=== PATIENT | female | born 1995 | race Caucasian/White ===

== ENCOUNTER 2016-11-28 12:48 | Emergency (ER) | payer BC, OTHER ==
[~2016-11-28] VITALS: Ht 182.9 cm; Wt 62.6 kg
[~2016-11-28 12:48] MED LIST: CIPR-255 PO
[2016-11-28 13:00] VITALS: TEMP 36.6; Ht 182.9 cm; Wt 62.6 kg
[2016-11-28] MEDS ORDERED: SODIUM CHLORIDE 0.9% 1000ML 1,000 ML IV STA (13:12)
[2016-11-28] MEDS ORDERED: ONDANSETRON INJ 2 MG/ML 2 ML VIAL IV STA (13:12)
[2016-11-28] MEDS ORDERED: KETOROLAC TROMETHAMINE 30 MG/ML VIAL IV STA (13:12)
[2016-11-28 13:31] LABS: BASO % 0.2 %; BASO ABS # 0.03 K/uL (0-0.2); COMPLETE YES; EOS % 1.3 %; IG% 0.2 %; LYMPH % 15.6 %; LYMPH ABS # 1.89 K/uL (1.2-3.4); MEAN CELL VOLUME 89.6 fL (80-100); MEAN CORPUSCULAR HEMOGLOBIN 31.7 pg (25-34); MEAN CORPUSCULAR HGB CONC 35.4 g/dl (32-36); MEAN PLATELET VOLUME 10.6 fL (7.4-10.4); MONO % 8.9 %; NEUT % 73.8 %; PLATELET COUNT 328 K/uL (130-400); RED BLOOD COUNT 5.36 M/uL (4.2-5.4); WHITE BLOOD COUNT 12.12 K/uL (4.8-10.8)
[2016-11-28 14:00] LABS: BUN/CREATININE RATIO 11.3 (10-20); CALCIUM 10.1 mg/dl (8.5-10.1); POTASSIUM 3.4 mmol/L (3.5-5.1)
[2016-11-28] MEDS ORDERED: CIPROFLOXACIN 400MG / 200ML D5W IV STA (14:10)
[2016-11-28 14:16] LABS: URINE APPEARANCE CLEAR (CLEAR); URINE BILIRUBIN NEG (NEG); URINE COLOR YELLOW; URINE EPITHELIAL CELL AUTO >30 /lpf (0-5); URINE NITRITE NEG (NEG); URINE SPECIFIC GRAVITY 1.007 (1.000-1.030); UROBILINOGEN NEG (NEG); ZZUR CULT IF INDIC CLEAN CATCH YES
[2016-11-28 14:21] LABS: MANUAL MICROSCOPIC REQUIRED? NO; REVIEW REQ? NO
[2016-11-28] MEDS ORDERED: MoRPHine SULFATE 4 MG/ML 1 ML CARP\\VIAL IV STA ×2 (14:25→15:28)
[2016-11-28] MEDS ORDERED: ONDA4TAB10 SL (14:37)
[2016-11-28] MEDS ORDERED: CIPR-255 PO (14:37)
[2016-11-28] MEDS ORDERED: OXYC1TAB3 PO (14:37)
[2016-11-28 15:00] VITALS: BP 100/56; PULSE 74; O2SAT 98
--- NOTE | 2016-11-28 15:30 | EMERGENCY ROOM VISIT NOTE ---
History First contact with patient: 13:12 Chief Complaint: VOMITING Stated Complaint: SICK, STOMACH PAIN Nursing Triage Summary: Triage note: pt reports nausea and vomitting since approx 1400 yesterday. pt also reports "i got my period and i have a lot of abd cramping." History of Present Illness The patient is a 21 year old female who presents to the Emergency Room with complaints of predominantly nausea, vomiting and abdominal cramping that started yesterday afternoon. The patient reports that she is due for menstruation, but reports that she has never had symptoms like this. She reports that she did have urinary discomfort and frequency last week. She took an amoxicillin that her mother gave her from a previous surgery. The patient denies any persistent urinary symptoms. She otherwise denies any prior history of abdominal surgery. She denies eating any unusual foods, has had no recent sick contacts, and has had no recent foreign travel. She denies any diarrhea. She rates her discomfort an 8 out of 10, mostly from her nausea and vomiting. Review of Systems HEENT: Denies dizziness, visual problems, hearing loss, tinnitus. Denies difficulty swallowing, sore throat or oral lesions. PULMONARY: Denies cough, shortness of breath, sputum production or hemoptysis. CARDIOVASCULAR: Denies chest pain, palpitations, dyspnea on exertion, orthopnea or peripheral edema. GASTROINTESTINAL: Denies diarrhea or constipation, otherwise see history of present illness. GENITOURINARY: See history of present illness for recent dysuria and frequency. NEUROLOGIC: Denies history of epilepsy, CVA, TIA or chronic headaches. MUSCULOSKELETAL: Denies history of joint tenderness/swelling. SKIN: Denies rashes or lesions. PSYCHIATRIC: Denies history of depression or mental illness. ENDOCRINE: Denies history of diabetes or thyroid disorders. Past Medical/Surgical History Medical Problems: (1) Heart murmur Surgical Problems: (1) No history of previous surgery Family History Diabetes mellitus FHx: cancer FHx: heart disease Hypertension Social History Smoking Status: Current Every Day Smoker Alcohol Use: occasionally Drug Use: none Marital Status: single, in relationship Housing Status: lives with significant other Occupation Status: unemployed Current/Historical Medications Scheduled Ciprofloxacin Hcl (Cipro), 500 MG PO BID Ondasetron Odt (Zofran Odt), 4 MG SL Q6H Scheduled PRN Oxycodone Ir (Roxicodone Ir), 1-2 TAB PO Q4H PRN for Pain Allergies Coded Allergies: No Known Allergies (Unverified , 11/28/16) Physical Exam Vital Signs Date Time Temp Pulse Resp B/P Pulse Ox O2 Delivery O2 Flow Rate FiO2 11/28/16 15:00 74 18 100/56 98 11/28/16 13:00 36.6 109 18 122/82 93 Room Air Physical Exam CONSTITUTIONAL: Healthy and well nourished. Alert and oriented X 3 with positive affect. Patient appears in moderate discomfort with nausea. HEENT: Normocephalic, atraumatic. Pupils equal, round and reactive. Ears and nares are clear. No scleral icterus or conjunctival injection/pallor. OROPHARYNX: Mucous membranes are dry. No posterior pharyngeal erythema or tonsillar hypertrophy. NECK: Full active range of motion without discomfort. No JVD or carotid bruits. RESPIRATORY: Clear to auscultation bilaterally with no wheezing, crackles, rhonchi or stridor. CARDIOVASCULAR: Regular rate and rhythm with no murmurs, rubs or gallops. GASTROINTESTINAL: Bowel sounds present in all quadrants. Patient has generalized and nonfocal tenderness to palpation of the abdomen without rigidity , guarding or rebound. Negative Rovsing sign. Negative heel tap. Positive CVA tenderness bilaterally. MUSCULOSKELETAL: Full range of motion of all joints without discomfort. INTEGUMENTARY: No rash or other significant dermatologic conditions noted. HEMATOLOGIC: No ecchymosis or petechiae appreciated. NEUROLOGIC: No focal neurologic deficits noted. Medical Decision & Procedures Laboratory Results 11/28/16 13:15 Red Blood Count 5.36, Mean Corpuscular Volume 89.6, Mean Corpuscular Hemoglobin 31.7, Mean Corpuscular Hemoglobin Concent 35.4, Mean Platelet Volume 10.6, Neutrophils (%) (Auto) 73.8, Lymphocytes (%) (Auto) 15.6, Monocytes (%) (Auto) 8.9, Eosinophils (%) (Auto) 1.3, Basophils (%) (Auto) 0.2, Neutrophils # (Auto) 8.93, Lymphocytes # (Auto) 1.89, Monocytes # (Auto) 1.08, Eosinophils # (Auto) 0.16, Basophils # (Auto) 0.03 11/28/16 13:15 Test 11/28/16 13:15 11/28/16 13:45 White Blood Count 12.12 K/uL (4.8-10.8) Red Blood Count 5.36 M/uL (4.2-5.4) Hemoglobin 17.0 g/dL (12.0-16.0) Hematocrit 48.0 % (37-47) Mean Corpuscular Volume 89.6 fL (80-100) Mean Corpuscular Hemoglobin 31.7 pg (25-34) Mean Corpuscular Hemoglobin Concent 35.4 g/dl (32-36) Platelet Count 328 K/uL (130-400) Mean Platelet Volume 10.6 fL (7.4-10.4) Neutrophils (%) (Auto) 73.8 % Lymphocytes (%) (Auto) 15.6 % Monocytes (%) (Auto) 8.9 % Eosinophils (%) (Auto) 1.3 % Basophils (%) (Auto) 0.2 % Neutrophils # (Auto) 8.93 K/uL (1.4-6.5) Lymphocytes # (Auto) 1.89 K/uL (1.2-3.4) Monocytes # (Auto) 1.08 K/uL (0.11-0.59) Eosinophils # (Auto) 0.16 K/uL (0-0.5) Basophils # (Auto) 0.03 K/uL (0-0.2) RDW Standard Deviation 42.9 fL (36.4-46.3) RDW Coefficient of Variation 13.2 % (11.5-14.5) Immature Granulocyte % (Auto) 0.2 % Immature Granulocyte # (Auto) 0.03 K/uL (0.00-0.02) Anion Gap 10.0 mmol/L (3-11) Est Creatinine Clear Calc Drug Dose 88.7 ml/min Estimated GFR () 93.9 Estimated GFR (Non- 81.0 BUN/Creatinine Ratio 11.3 (10-20) Calcium Level 10.1 mg/dl (8.5-10.1) Total Bilirubin 2.1 mg/dl (0.2-1) Direct Bilirubin 0.3 mg/dl (0-0.2) Aspartate Amino Transf (AST/SGOT) 18 U/L (15-37) Alanine Aminotransferase (ALT/SGPT) 18 U/L (12-78) Alkaline Phosphatase 73 U/L (45-117) Total Creatine Kinase 49 U/L (26-192) Total Protein 9.1 gm/dl (6.4-8.2) Albumin 5.2 gm/dl (3.4-5.0) Lipase 81 U/L (73-393) Urine Color YELLOW Urine Appearance CLEAR (CLEAR) Urine pH 7.0 (4.5-7.5) Urine Specific [place] 1.007 (1.000-1.030) Urine Protein NEG (NEG) Urine Glucose (UA) NEG (NEG) Urine Ketones 2+ (NEG) Urine Occult Blood TRACE (NEG) Urine Nitrite NEG (NEG) Urine Bilirubin NEG (NEG) Urine Urobilinogen NEG (NEG) Urine Leukocyte Esterase SMALL (NEG) Urine WBC (Auto) 5-10 /hpf (0-5) Urine RBC (Auto) 0-4 /hpf (0-4) Urine Hyaline Casts (Auto) 0 /lpf (0-5) Urine Epithelial Cells (Auto) >30 /lpf (0-5) Urine Bacteria (Auto) 1+ (NEG) Urine Test NEG (NEG) The above labs were reviewed. The patient has a mild leukocytosis with left shift and bandemia. Patient appears to be hemoconcentrated. Potassium is 3.4. Bilirubins are also slightly elevated. Urinalysis is consistent with infection. Urine is negative. Medications Administered Medications (Trade) Dose Ordered Sig/Cherise Route Start Time Stop Time Status Last Admin Dose Admin Ketorolac Tromethamine 30 mg 30 mg NOW STAT IV 11/28/16 13:12 11/28/16 13:14 DC 11/28/16 13:27 30 MG Sodium Chloride (Nss 1000ml) 1,000 ml @ 999 mls/hr Q1H1M STAT IV 11/28/16 13:12 11/28/16 14:12 DC 11/28/16 13:25 999 MLS/HR Ondansetron HCl (Zofran Inj) 4 mg NOW STAT IV 11/28/16 13:12 11/28/16 13:14 DC 11/28/16 13:25 4 MG Ciprofloxacin/ Dextrose (Cipro / D5w) 400 mg NOW STAT IV 11/28/16 14:10 11/28/16 14:11 DC 11/28/16 14:18 400 MG Morphine Sulfate (MoRPHine SULFATE INJ) 4 mg NOW STAT IV 11/28/16 14:25 11/28/16 14:26 DC 11/28/16 14:31 4 MG Procedure 1. IV hydration: The patient received a liter normal saline bolus 2. IV medications: Toradol 30 mg and Zofran 4 mg IVP. The patient was also administered morphine 4 mg IVP for additional pain, and was also administered Cipro 400 mg IV infusion. She received an additional morphine 4 mg IVP prior to discharge. ED Course Patient history and physical exam were performed. Nurse's notes were reviewed. Vital signs were reviewed. The patient is tachycardic at 109 bpm. O2 saturation was 93% on room air, but during examination, O2 saturation was 98% on room air. The patient is afebrile and normotensive. IV access was established, and labs were drawn. The patient was hydrated with normal saline, and received IV medications as discussed in the previous Procedure section. Review of labs shows a leukocytosis with left shift and bandemia. She also has mild hypokalemia. She has mildly elevated bilirubin. Urinalysis is consistent with infection, and with clinical findings and history, I suspect pyelonephritis. The patient was administered IV Cipro. She was offered hospitalist consultation, but the patient reported feeling better, and would like to be discharged home. The patient will be provided prescriptions for Cipro, Zofran and OxyIR. The patient was instructed to return to the emergency department for any progressively worsening symptoms. She was instructed to follow-up with her PCP within the next 24-48 hours for recheck. The patient was happy with plan of care, voiced understanding of all discharge instructions, and denied any significant pain or nausea at the conclusion of my exam. Medical Decision Patient presents to the emergency department with primary complaint of nausea, vomiting and generalized abdominal pain. She relates that she did have urinary symptoms last week that resolved after a single dose of amoxicillin. Her examination and laboratory studies today are consistent with an acute pyelonephritis. She has a benign abdomen on exam, showing no evidence for peritonitis. She does have a positive CVA tenderness consistent with pyelonephritis. Laboratory studies are not suggestive of pancreatitis, hepatitis or cholecystitis. Obstructive uropathy was also considered, but felt to be unlikely. The patient requested discharge home, and was given instructions to return with any worsening symptoms. Impression Primary Impression: Pyelonephritis Departure Information Prescriptions Oxycodone Ir (Roxicodone Ir) 5 Mg Tab 1-2 TAB PO Q4H Y for Pain, #15 TAB For Initial Treatment Prov: Flaco Donald PA 11/28/16 Ondasetron Odt (ZOFRAN ODT) 4 Mg Tab 4 MG SL Q6H for Nausea, #10 TAB Prov: Flaco Donald PA 11/28/16 Ciprofloxacin Hcl (CIPRO) 500 Mg Tab 500 MG PO BID for 10 Days, #20 TAB Prov: Flaco Donald PA 11/28/16 Referrals No Doctor, Assigned (PCP) Patient Instructions [facility]
== END 2016-11-28 16:15 | disposition home or self-care (01) ==
LOC: C.EDB 12:49 → C.EDC 16:15
DX: N12 Tubulo-interstitial nephritis, not specified as acute or chronic (principal); F17.200 Nicotine dependence, unspecified, uncomplicated

== ENCOUNTER 2017-02-11 23:02 | Emergency (ER) | payer BC ==
[~2017-02-11] VITALS: Ht 182.9 cm; Wt 61.9 kg
[~2017-02-11 23:02] MED LIST changes: +ONDA4TAB10 SL; +OXYC1TAB3 PO
[2017-02-11 23:07] VITALS: TEMP 36.7; Ht 182.9 cm; Wt 61.9 kg
[2017-02-11] MEDS ORDERED: ONDANSETRON INJ 2 MG/ML 2 ML VIAL IV STA (23:46)
[2017-02-11] MEDS ORDERED: SODIUM CHLORIDE 0.9% 1000ML 1,000 ML IV STA ×2 (23:46)
[2017-02-11 23:56] LABS: BASO % 0.3 %; BASO ABS # 0.05 K/uL (0-0.2); COMPLETE YES; EOS % 0.1 %; HEMATOCRIT 47.2 % (37-47); IG% 0.3 %; LYMPH % 11.4 %; LYMPH ABS # 2.08 K/uL (1.2-3.4); MEAN CELL VOLUME 90.1 fL (80-100); MEAN CORPUSCULAR HEMOGLOBIN 30.3 pg (25-34); MEAN CORPUSCULAR HGB CONC 33.7 g/dl (32-36); MONO % 4.7 %; NEUT % 83.2 %; PLATELET COUNT 395 K/uL (130-400); RED BLOOD COUNT 5.24 M/uL (4.2-5.4); WHITE BLOOD COUNT 18.26 K/uL (4.8-10.8)
[2017-02-12 00:09] LABS: URINE APPEARANCE CLOUDY (CLEAR); URINE BILIRUBIN NEG (NEG); URINE COLOR YELLOW; URINE EPITHELIAL CELL AUTO >30 /lpf (0-5); URINE NITRITE NEG (NEG); URINE PH 8.5 (4.5-7.5); URINE SPECIFIC GRAVITY 1.029 (1.000-1.030); UROBILINOGEN NEG (NEG); ZZUR CULT IF INDIC CLEAN CATCH YES
[2017-02-12 00:14] LABS: MANUAL MICROSCOPIC REQUIRED? NO; REVIEW REQ? NO; SULFASALICYLIC ACID POS (NEG)
[2017-02-12 00:19] LABS: BUN/CREATININE RATIO 12.7 (10-20); CALCIUM 9.6 mg/dl (8.5-10.1); CREATININE 0.98 mg/dl (0.60-1.20); POTASSIUM 3.9 mmol/L (3.5-5.1)
[2017-02-12 00:22] LABS: ALB/GLOB RATIO 1.3 (0.9-2)
[2017-02-12] MEDS ORDERED: KETOROLAC TROMETHAMINE 30 MG/ML VIAL IV STA (01:09)
[2017-02-12 01:30] VITALS: BP 124/83; PULSE 74; O2SAT 94
[2017-02-12] MEDS ORDERED: ONDA4TAB10 SL (01:39)
--- NOTE | 2017-02-12 01:40 | EMERGENCY ROOM VISIT NOTE ---
History First contact with patient: 23:34 Chief Complaint: ILLNESS Stated Complaint: VOMITING, AND SEVERE HEADACHE History of Present Illness The patient is a 21 year old female who presents to the Emergency Room with complaints of nausea and vomiting. The patient reports that she has been nauseous since she woke up this morning. She states she has had multiple episodes of vomiting. She has not been able to keep anything down. She states that she developed a headache a few hours ago and feels that it is likely due to dehydration. She denies any chest pain, shortness of breath, abdominal pain , fevers, urinary symptoms or changes in bowel movements. She denies any neck pain/stiffness. She has taken Tylenol without relief of her symptoms. She denies any chance of . Review of Systems A complete 10-point Review of Systems was discussed with the patient, with pertinent positives and negatives listed in the History of Present Illness. All remaining Review of Systems questions can be considered negative unless otherwise specified. Past Medical/Surgical History Medical Problems: (1) Heart murmur Surgical Problems: (1) No history of previous surgery Family History Diabetes mellitus FHx: cancer FHx: heart disease Hypertension Social History Smoking Status: Current Every Day Smoker Alcohol Use: occasionally Drug Use: none Marital Status: single, in relationship Housing Status: lives with significant other Occupation Status: unemployed Current/Historical Medications Scheduled Ondasetron Odt (Zofran Odt), 4 MG SL Q6H Allergies Coded Allergies: No Known Allergies (Unverified , 11/28/16) Physical Exam Vital Signs Date Time Temp Pulse Resp B/P Pulse Ox O2 Delivery O2 Flow Rate FiO2 02/12/17 01:30 74 18 124/83 94 Room Air 02/11/17 23:07 36.7 125 18 115/75 98 Room Air Physical Exam VITALS: Vitals are noted on the nurse's note and reviewed by myself. Vital signs stable. GENERAL: This is a 21-year-old female, in no acute distress, nondiaphoretic, well-developed well-nourished. SKIN: The skin was without rashes. HEAD: Normocephalic atraumatic. EARS: External auditory canals clear, tympanic membranes pearly dumont without erythema or effusion bilaterally. EYES: Pupils equal round and reactive to light and accommodation. Conjunctivae without injection, sclerae without icterus. Extraocular movements intact. MOUTH: Mucous membranes dry. Tonsils are not enlarged. Pharynx without erythema or exudate. NECK: Supple without nuchal rigidity. No lymphadenopathy. No meningismus. HEART: Regular rate and rhythm without murmurs gallops or rubs. LUNGS: Clear to auscultation bilaterally without wheezes, rales or rhonchi. ABDOMEN: Positive bowel sounds x 4. Soft, nontender to palpation. NEURO: Patient was alert and oriented to person place and time. Medical Decision & Procedures Laboratory Results 02/11/17 23:35 Red Blood Count 5.24, Mean Corpuscular Volume 90.1, Mean Corpuscular Hemoglobin 30.3, Mean Corpuscular Hemoglobin Concent 33.7, Mean Platelet Volume 10.0, Neutrophils (%) (Auto) 83.2, Lymphocytes (%) (Auto) 11.4, Monocytes (%) (Auto) 4.7, Eosinophils (%) (Auto) 0.1, Basophils (%) (Auto) 0.3, Neutrophils # (Auto) 15.21, Lymphocytes # (Auto) 2.08, Monocytes # (Auto) 0.85, Eosinophils # (Auto) 0.01, Basophils # (Auto) 0.05 02/11/17 23:35 Test 02/11/17 23:30 02/11/17 23:35 Urine Color YELLOW Urine Appearance CLOUDY (CLEAR) Urine pH 8.5 (4.5-7.5) Urine Specific [place] 1.029 (1.000-1.030) Urine Protein 2+ (NEG) Urine Glucose (UA) NEG (NEG) Urine Ketones 2+ (NEG) Urine Occult Blood NEG (NEG) Urine Nitrite NEG (NEG) Urine Bilirubin NEG (NEG) Urine Urobilinogen NEG (NEG) Urine Leukocyte Esterase NEG (NEG) Urine WBC (Auto) 1-5 /hpf (0-5) Urine RBC (Auto) 0-4 /hpf (0-4) Urine Hyaline Casts (Auto) 5-10 /lpf (0-5) Urine Epithelial Cells (Auto) >30 /lpf (0-5) Urine Bacteria (Auto) 2+ (NEG) Urine Test NEG (NEG) White Blood Count 18.26 K/uL (4.8-10.8) Red Blood Count 5.24 M/uL (4.2-5.4) Hemoglobin 15.9 g/dL (12.0-16.0) Hematocrit 47.2 % (37-47) Mean Corpuscular Volume 90.1 fL (80-100) Mean Corpuscular Hemoglobin 30.3 pg (25-34) Mean Corpuscular Hemoglobin Concent 33.7 g/dl (32-36) Platelet Count 395 K/uL (130-400) Mean Platelet Volume 10.0 fL (7.4-10.4) Neutrophils (%) (Auto) 83.2 % Lymphocytes (%) (Auto) 11.4 % Monocytes (%) (Auto) 4.7 % Eosinophils (%) (Auto) 0.1 % Basophils (%) (Auto) 0.3 % Neutrophils # (Auto) 15.21 K/uL (1.4-6.5) Lymphocytes # (Auto) 2.08 K/uL (1.2-3.4) Monocytes # (Auto) 0.85 K/uL (0.11-0.59) Eosinophils # (Auto) 0.01 K/uL (0-0.5) Basophils # (Auto) 0.05 K/uL (0-0.2) RDW Standard Deviation 41.6 fL (36.4-46.3) RDW Coefficient of Variation 12.7 % (11.5-14.5) Immature Granulocyte % (Auto) 0.3 % Immature Granulocyte # (Auto) 0.06 K/uL (0.00-0.02) Anion Gap 9.0 mmol/L (3-11) Est Creatinine Clear Calc Drug Dose 89.5 ml/min Estimated GFR () 96.2 Estimated GFR (Non- 83.0 BUN/Creatinine Ratio 12.7 (10-20) Calcium Level 9.6 mg/dl (8.5-10.1) Total Bilirubin 0.7 mg/dl (0.2-1) Aspartate Amino Transf (AST/SGOT) 30 U/L (15-37) Alanine Aminotransferase (ALT/SGPT) 37 U/L (12-78) Alkaline Phosphatase 70 U/L (45-117) Total Protein 8.6 gm/dl (6.4-8.2) Albumin 4.8 gm/dl (3.4-5.0) Globulin 3.8 gm/dl (2.5-4.0) Albumin/Globulin Ratio 1.3 (0.9-2) Lipase 63 U/L (73-393) Medications Administered Medications (Trade) Dose Ordered Sig/Cherise Route Start Time Stop Time Status Last Admin Dose Admin Sodium Chloride 1,000 ml @ 999 mls/hr Q1H1M STAT IV 02/11/17 23:46 02/12/17 00:46 DC 02/12/17 00:00 999 MLS/HR Sodium Chloride (Nss 1000ml) 1,000 ml @ 999 mls/hr Q1H1M STAT IV 02/11/17 23:46 02/12/17 00:46 DC 02/12/17 00:00 999 MLS/HR Ondansetron HCl (Zofran Inj) 4 mg NOW STAT IV 02/11/17 23:46 02/11/17 23:47 DC 02/12/17 00:00 4 MG Ketorolac Tromethamine (Toradol Inj) 30 mg NOW STAT IV 02/12/17 01:09 02/12/17 01:10 DC 02/12/17 01:29 30 MG Ondansetron HCl (ZOFRAN ODT 4MG Home Pack) 1 homepack UD ONCE PO 02/12/17 01:45 02/12/17 01:46 DC 02/12/17 01:44 1 HOMEPACK ED Course The patient was evaluated as above. Labs were drawn and IV access was obtained. Patient was medicated with 2 L normal saline solution and 4 mg Zofran. Patient was reevaluated and felt much better. She did request something for her headache and was given 30 mg Toradol IV. Patient had significant relief of her symptoms and requested discharge home. She was given a home pack of Zofran. Discharge instructions were reviewed with the patient. The patient verbalized understanding of my assessment and treatment plan and was discharged home in good condition. Medical Decision Differential diagnosis includes gastroenteritis, colitis, , meningitis , encephalitis, influenza, appendicitis, among others. The patient is a 21-year-old female who presents today complaining of vomiting. The patient does report a mild headache, but this seems to be secondary to dehydration. Labs revealed a leukocytosis of 18,000, likely secondary to the patient's multiple episodes of vomiting throughout the day. No concerning anemia or electrolyte abnormalities. Urinalysis was suggestive of contamination versus infection and will be sent for culture. Urine was negative. Patient felt much better after IV hydration and Zofran. She had no neck pain/stiffness or meningismus on exam, and I am not suspicious of meningitis or encephalitis. She will be treated with Zofran at home and was instructed to follow-up with her primary care provider or return here for worsening of her symptoms. The patient's case was reviewed with Dr. Sparks, ED attending physician, who agreed with my assessment and treatment plan. Based on the patient's presentation and work up, I feel the patient is stable for outpatient treatment. The patient was educated to the emergency department for any worsening of their current condition or new/concerning symptoms. She will follow up with her PCP this week. Impression Primary Impression: Nausea & vomiting Departure Information Dispostion Home / Self-Care Condition GOOD Prescriptions Ondasetron Odt (ZOFRAN ODT) 4 Mg Tab 4 MG SL Q6H for Nausea, #10 TAB Prov: Thalia Rodríguez ., CHRISTIAN 02/12/17 Referrals No Doctor, Assigned (PCP) Patient Instructions My [facility] Additional Instructions You have been prescribed Zofran to be used for any nausea or vomiting. Take as prescribed. For pain control, you can use the following [id number] medicines (if >12 yo): - Regular strength (325mg/tab) Tylenol (acetaminophen) 2 tabs every 4-6 hours as needed. Do not exceed 12 tablets in a 24 hour period. Avoid taking more than 4 grams (4000 mg) of Tylenol per day. This includes any other sources of acetaminophen you may take on a regular basis. - Regular strength (200 mg/tab) Advil (ibuprofen) 1-2 tabs every 4-6 hours as needed. Do not exceed a dose of 3200 mg per day. Rest and drink plenty of fluids, especially electrolyte containing fluids. Follow-up with your primary care provider within 48 hours. Return to the emergency department with worsening vomiting, worsening headache, fever, abdominal pain or any other new/concerning symptoms. Problem Qualifiers Primary Impression: Nausea & vomiting Vomiting type: unspecified Vomiting Intractability: non-intractable Qualified Codes: R11.2 - Nausea with vomiting, unspecified
[2017-02-12] MEDS ORDERED: ONDANSETRON HOME PACK 4MG OD TAB PO ONE (01:45)
== END 2017-02-12 01:49 | disposition home or self-care (01) ==
LOC: C.EDB 23:03 → C.EDC 02-12 01:49
DX: R11.2 Nausea with vomiting, unspecified (principal); R51 Headache; Z83.3 Family history of diabetes mellitus; Z82.49 Family history of ischemic heart disease and other diseases of the circulatory system; Z80.9 Family history of malignant neoplasm, unspecified; F17.210 Nicotine dependence, cigarettes, uncomplicated

== ENCOUNTER 2017-10-05 00:37 | Emergency (ER) | payer BC ==
[~2017-10-05] VITALS: Ht 180.3 cm; Wt 63.2 kg
[2017-10-05 00:40] VITALS: Ht 180.3 cm; Wt 63.2 kg
[2017-10-05] MEDS ORDERED: ACETAMINOPHEN IV 650 MG in EMPTY BAG 0 ML IV STA (01:00)
[2017-10-05] MEDS ORDERED: ONDANSETRON INJ 2 MG/ML 2 ML VIAL IV STA (01:00)
--- NOTE | 2017-10-05 01:09 | EMERGENCY ROOM VISIT NOTE ---
History Report prepared by Deshawn: Kvng Bolaños Under the Supervision of: Dr. Vanita Shrestha D.O. First contact with patient: 00:47 Chief Complaint: ED VAG BLEEDING Stated Complaint: POSSIBLE MISCARRIAGE History of Present Illness The patient is a 22 year old female who presents to the Emergency Room with complaints of abnormal vaginal bleeding that began 2 hours ago. She is currently 6-7 weeks . A couple of hours ago, the patient began to have some vaginal spotting. It then progressive worsened to passing a significant amount of blood with clots present. She also began have abdominal cramping that progressively worsened as well. Two weeks ago, she went to an MANAGER CONTACT and received a transvaginal US that showed a "cow creek" and confirmed that she was and dated her at 5 weeks 3 days. She notes that she was not planning on keeping the . This was her first ever and says that it was an "accident". She is currently experiencing diaphoresis, nausea, and abdominal cramping. She also passed a large amount of blood with clots in the hospital room bathroom. She denies any fevers, chills, dizziness, lightheadedness, or trouble with her bowels/bladder. She denies any history of ovarian or uterine etiology. She does have a history of painful menstrual cycles. She took Ibuprofen and Zofran GREASE MONKEY to try to help her symptoms. Source of History: patient Onset: 2 hours ago Position: other () Symptom Intensity: moderate Quality: other (Vaginal Bleeding) Timing: intermittent Associated Symptoms: + diaphoresis, + nausea, + abdominal pain (cramping), No fevers, No chills, No vomiting, No melena, No hematochezia, No diarrhea, No urinary symptoms Note: She denies any lightheadedness or dizziness. Review of Systems See HPI for pertinent positives & negatives. A total of 10 systems reviewed and were otherwise negative. Past Medical & Surgical Medical Problems: (1) Heart murmur Surgical Problems: (1) No history of previous surgery Family History Diabetes mellitus FHx: cancer FHx: heart disease Hypertension Social History Smoking Status: Never Smoker Alcohol Use: occasionally Drug Use: none Marital Status: single, in relationship Housing Status: lives with significant other Occupation Status: unemployed Current/Historical Medications Scheduled PRN Ondansetron Odt (Zofran Odt), 8 MG SL Q6H PRN for Nausea Allergies Coded Allergies: No Known Allergies (Unverified , 11/28/16) Physical Exam Vital Signs Date Time Temp Pulse Resp B/P (MAP) Pulse Ox O2 Delivery O2 Flow Rate FiO2 10/05/17 05:56 66 15 114/72 97 10/05/17 05:44 37.0 66 15 114/72 98 10/05/17 05:25 37.0 72 12 114/66 100 10/05/17 04:54 73 15 119/82 98 Room Air 10/05/17 02:25 74 15 117/80 97 Room Air 10/05/17 01:39 99 Room Air 10/05/17 01:21 79 10/05/17 00:40 36.8 114 20 132/89 96 Room Air Physical Exam GENERAL: alert, anxious and tearful appearing, well nourished, mild distress, non-toxic EYE EXAM: normal conjunctiva OROPHARYNX: no exudate, no erythema, lips, buccal mucosa, and tongue normal and mucous membranes are moist LUNGS: Clear to auscultation. Normal chest wall mechanics HEART: no murmurs, S1 normal and S2 normal ABDOMEN: abdomen soft, lower abdominal tenderness to palpation, normo-active bowel sounds, no masses, no rebound or guarding. No organomegaly. SKIN: no rashes and no bruising UPPER EXTREMITIES: upper extremities are grossly normal. LOWER EXTREMITIES: No pitting edema. NEURO EXAM: Normal sensorium, cranial nerves II-XII grossly intact, normal speech, no gross weakness of arms, no gross weakness of legs. Medical Decision & Procedures ER Provider Diagnostic Interpretation: Radiology results have been interpreted by the radiologist and reviewed by me. US OB 1st TRIMESTER: No IUP visualized, normal endometrial thickness. Large complex collection within the vaginal canal with avascular echogenic components and hypoechoic fluid type components. Total measures 7 x 3 x 6 cm with echogenic component approximately 5 cm. Findings may represent clot. Ovaries not visualized due to bowel gas. No adnexal mass visualized. No free fluid. DDX includes spontaneous AB, early IUP, nonvisualized ectopic. Radiologist: Ghulam Azevedo M.D. Laboratory Results 10/05/17 00:57 Red Blood Count 5.02, Mean Corpuscular Volume 88.4, Mean Corpuscular Hemoglobin 30.3, Mean Corpuscular Hemoglobin Concent 34.2, Mean Platelet Volume 9.7, Neutrophils (%) (Auto) 74.6, Lymphocytes (%) (Auto) 17.0, Monocytes (%) (Auto) 7.0, Eosinophils (%) (Auto) 0.8, Basophils (%) (Auto) 0.2, Neutrophils # (Auto) 13.88, Lymphocytes # (Auto) 3.17, Monocytes # (Auto) 1.30, Eosinophils # (Auto) 0.14, Basophils # (Auto) 0.04 10/05/17 00:57 Test 10/05/17 00:57 White Blood Count 18.60 K/uL (4.8-10.8) Red Blood Count 5.02 M/uL (4.2-5.4) Hemoglobin 15.2 g/dL (12.0-16.0) Hematocrit 44.4 % (37-47) Mean Corpuscular Volume 88.4 fL (80-100) Mean Corpuscular Hemoglobin 30.3 pg (25-34) Mean Corpuscular Hemoglobin Concent 34.2 g/dl (32-36) Platelet Count 358 K/uL (130-400) Mean Platelet Volume 9.7 fL (7.4-10.4) Neutrophils (%) (Auto) 74.6 % Lymphocytes (%) (Auto) 17.0 % Monocytes (%) (Auto) 7.0 % Eosinophils (%) (Auto) 0.8 % Basophils (%) (Auto) 0.2 % Neutrophils # (Auto) 13.88 K/uL (1.4-6.5) Lymphocytes # (Auto) 3.17 K/uL (1.2-3.4) Monocytes # (Auto) 1.30 K/uL (0.11-0.59) Eosinophils # (Auto) 0.14 K/uL (0-0.5) Basophils # (Auto) 0.04 K/uL (0-0.2) RDW Standard Deviation 51.4 fL (36.4-46.3) RDW Coefficient of Variation 16.6 % (11.5-14.5) Immature Granulocyte % (Auto) 0.4 % Immature Granulocyte # (Auto) 0.07 K/uL (0.00-0.02) Prothrombin Time 10.7 SECONDS (9.0-12.0) Prothromb Time International Ratio 1.0 (0.9-1.1) Anion Gap 7.0 mmol/L (3-11) Est Creatinine Clear Calc Drug Dose 145.6 ml/min Estimated GFR () > 150.0 Estimated GFR (Non- 129.6 BUN/Creatinine Ratio 10.4 (10-20) Calcium Level 9.2 mg/dl (8.5-10.1) Human Chorionic Gonadotropin, Quant 39294 mIU/mL Laboratory results per my review. Medications Administered Medications (Trade) Dose Ordered Sig/Cherise Route Start Time Stop Time Status Last Admin Dose Admin Acetaminophen 650 mg/Empty Bag 65 ml @ 260 mls/hr NOW STAT IV 10/05/17 01:00 10/05/17 01:14 DC 10/05/17 01:17 260 MLS/HR Ondansetron HCl (Zofran Inj) 4 mg NOW STAT IV 10/05/17 01:00 10/05/17 01:05 DC 10/05/17 01:17 4 MG Fentanyl Citrate (Fentanyl Inj) 50 mcg NOW STAT IV 10/05/17 02:10 10/05/17 02:11 DC 10/05/17 02:22 50 MCG Oxycodone/ Acetaminophen (Percocet 5-325mg Tab) 1 tab NOW STAT PO 10/05/17 03:56 10/05/17 03:58 DC 10/05/17 04:02 1 TAB ED Course 0047: The patient was evaluated in room A3. A complete history and physical exam was performed. 0100: Ordered Zofran Inj 4 mg IV, Acetaminophen 650 mg/Empty Bag 65 ml @ 260 mls /hr IV 0210: Ordered Fentanyl Inj 50 mcg IV 0345: I updated the patient at this time. Her pain is a little better. She is going to get Candace, which I explained to her. 0356: Ordered Oxycodone/Acetaminophen 1 tab PO 0600: Ordered Oxycodone/Acetaminophen 1 homepack PO 0610: Upon reevaluation, the patient is feeling better. I discussed the findings and the treatment plan with the patient. She verbalizes agreement and understanding. She was discharged home. Medical Decision Differential diagnosis: Etiologies such as ectopic , spontaneous , dysfunction uterine bleeding, bleeding dyscrasia, trauma, infection, as well as others were entertained. Patient most likely expressing spontaneous AB given timeframe and new onset of symptoms. Patient with no other GI or symptoms. Patient most concerned about pain related to cramping. Patient passing egg size clots while here, no obvious POC's noted. Patient improved following medication. Ultrasound noted no IUP has patient stated had been previously seen during an outpatient MANAGER CONTACT ultrasound. Discussed with her findings, likely progression of symptoms, need for close follow-up with MANAGER CONTACT, need for repeat blood work, symptoms to watch and return for, need for administration of RhoGAM here prior to discharge, she verbalized understanding of all this was agreeable with plan. Discussed with patient pelvic exam, although I feel it is not necessary given symptoms and ultrasound findings, patient wished to defer at this time also which I felt was reasonable. Medication Reconcilliation Current Medication List: was personally reviewed by me Blood Pressure Screening Patient's blood pressure: Elevated blood pressure Blood pressure disposition: Elevated BP felt to be situational Impression Primary Impression: Spontaneous Scribe Attestation The scribe's documentation has been prepared under my direction and personally reviewed by me in its entirety. I confirm that the note above accurately reflects all work, treatment, procedures, and medical decision making performed by me. Departure Information Dispostion Home / Self-Care Referrals No Doctor, Assigned (PCP) Forms HOME CARE DOCUMENTATION FORM, IMPORTANT VISIT INFORMATION, WORK / SCHOOL INSTRUCTIONS Patient Instructions My [facility] Additional Instructions Please call and follow-up with drilling assistant about the spontaneous miscarriage. Please drink plenty of water. You may use the pain medicine as provided. Do not take it and drive or drink alcohol. If you have any worsening bleeding, worsening pain, fevers/chills, vomiting, dizziness, pass out, or you have any other new or concerning symptoms, please return to the ER.
[2017-10-05 01:11] LABS: BASO % 0.2 %; BASO ABS # 0.04 K/uL (0-0.2); COMPLETE YES; EOS % 0.8 %; HEMATOCRIT 44.4 % (37-47); IG% 0.4 %; LYMPH ABS # 3.17 K/uL (1.2-3.4); MEAN CELL VOLUME 88.4 fL (80-100); MEAN CORPUSCULAR HEMOGLOBIN 30.3 pg (25-34); MEAN CORPUSCULAR HGB CONC 34.2 g/dl (32-36); MEAN PLATELET VOLUME 9.7 fL (7.4-10.4); NEUT % 74.6 %; PLATELET COUNT 358 K/uL (130-400); RED BLOOD COUNT 5.02 M/uL (4.2-5.4)
[2017-10-05] MEDS ORDERED: ONDA8TAB62 SL (01:16)
[2017-10-05 01:23] LABS: PROTHROMBIN TIME (PATIENT) 10.7 SECONDS (9.0-12.0)
[2017-10-05 01:32] LABS: BLOOD UREA NITROGEN 6 mg/dl (7-18); BUN/CREATININE RATIO 10.4 (10-20); CALCIUM 9.2 mg/dl (8.5-10.1); CARBON DIOXIDE 24 mmol/L (21-32); CHLORIDE 106 mmol/L (98-107); CREATININE 0.61 mg/dl (0.60-1.20); GLUCOSE 95 mg/dl (70-99); POTASSIUM 3.3 mmol/L (3.5-5.1); SODIUM 137 mmol/L (136-145)
[2017-10-05] MEDS ORDERED: FENTANYL CITRATE INJ 50 MCG/1 ML 2 ML VIAL IV STA (02:10)
[2017-10-05] MEDS ORDERED: OXYCODONE/ACETAMINOPHEN 5-325 TAB PO STA (03:56)
[2017-10-05 05:25] VITALS: BP 114/66; PULSE 72; TEMP 37; O2SAT 100
[2017-10-05 05:44] VITALS: BP 114/72; PULSE 66; TEMP 37; O2SAT 98
[2017-10-05 05:56] VITALS: BP 114/72; PULSE 66; O2SAT 97
[2017-10-05] MEDS ORDERED: PERCOCET HOME PACK PO ONE (06:00)
--- NOTE | 2017-10-05 07:27 | DIAGNOSTIC IMAGING REPORT ---
<14 WKS SINGLE CLINICAL HISTORY: preg, vag bleed bleeding TECHNIQUE: Transabdominal ultrasound COMPARISON STUDY: None FINDINGS: Uterus is midline. No evidence for intrauterine gestational sac. Complex collection within the vaginal canal containing soft tissue and/or hemorrhagic component. This measures 7 x 6 x 4 cm. This potentially relates to ongoing miscarriage although components are not identified. IMPRESSION: 1. Complex soft tissue, hemorrhage, or other entity within the vaginal canal. 2. Diagnostic considerations include a simple hemorrhage, current miscarriage with associated hemorrhage, versus ongoing miscarriage. 3. An intrauterine gestational sac is not identified. The above report was generated using voice recognition software. It may contain grammatical, syntax or spelling errors. Electronically signed by: Thiago Diaz M.D. 10/05/2017 7:26 AM Dictated Date/Time: 10/05/2017 7:23 AM
== END 2017-10-05 05:58 | disposition home or self-care (01) ==
LOC: C.EDB 00:37 → C.EDA 05:58
DX: O03.9 Complete or unspecified spontaneous abortion without complication (principal); Z3A.01 Less than 8 weeks gestation of pregnancy; R01.1 Cardiac murmur, unspecified; Z83.3 Family history of diabetes mellitus; Z82.49 Family history of ischemic heart disease and other diseases of the circulatory system

== ENCOUNTER 2017-10-25 12:28 | Emergency (ER) | payer BC ==
[~2017-10-25] VITALS: Ht 180.3 cm; Wt 61.7 kg
[~2017-10-25 12:28] MED LIST changes: -CIPR-255 PO; -ONDA4TAB10 SL; +ONDA8TAB62 SL; -OXYC1TAB3 PO
[2017-10-25 12:33] VITALS: Ht 180.3 cm; Wt 61.7 kg
[2017-10-25] MEDS ORDERED: ONDANSETRON INJ 2 MG/ML 2 ML VIAL IV STA (12:50)
[2017-10-25] MEDS ORDERED: SODIUM CHLORIDE 0.9% 500ML 500 ML IV STA (12:50)
[2017-10-25] MEDS ORDERED: IBUPROFEN 600 MG TAB PO STA (13:59)
--- NOTE | 2017-10-25 14:02 | DIAGNOSTIC IMAGING REPORT ---
CHEST 2 VIEWS ROUTINE CLINICAL HISTORY: Cough COMPARISON STUDY: 09/08/2013 FINDINGS: The cardiac and mediastinal contours are normal. There is no evidence of focal pulmonary consolidation. There is no evidence of failure. No pleural effusions are visualized.[There is a persistent thoracic scoliosis. Incidental note is made of an azygos fissure. IMPRESSION: No active disease in the chest. Electronically signed by: Brien Jay M.D. 10/25/2017 2:01 PM Dictated Date/Time: 10/25/2017 2:00 PM
[2017-10-25 14:23] LABS: BASO % 0.4 %; BASO ABS # 0.03 K/uL (0-0.2); HEMATOCRIT 44.6 % (37-47); IG# 0.02 K/uL (0.00-0.02); LYMPH % 11.5 %; LYMPH ABS # 0.86 K/uL (1.2-3.4); MEAN CELL VOLUME 92.5 fL (80-100); MEAN CORPUSCULAR HEMOGLOBIN 31.1 pg (25-34); MEAN CORPUSCULAR HGB CONC 33.6 g/dl (32-36); MEAN PLATELET VOLUME 10.9 fL (7.4-10.4); MONO ABS # 0.82 K/uL (0.11-0.59); NEUT % 76.8 %; NEUT ABS # 5.72 K/uL (1.4-6.5); PLATELET COUNT 224 K/uL (130-400); RED CELL DISTRIBUTION WIDTH CV 15.2 % (11.5-14.5); RED CELL DISTRIBUTION WIDTH SD 51.4 fL (36.4-46.3); WHITE BLOOD COUNT 7.45 K/uL (4.8-10.8)
[2017-10-25 14:28] LABS: INFLUENZA B ANTIGEN Neg for Influ B (NEG)
[2017-10-25 14:31] LABS: CALCIUM 8.9 mg/dl (8.5-10.1); CREATININE 0.78 mg/dl (0.60-1.20); POTASSIUM 3.3 mmol/L (3.5-5.1)
[2017-10-25] MEDS ORDERED: OSELTAMIVIR PHOSPHATE 75 MG CAP PO STA (14:38)
[2017-10-25 15:09] VITALS: BP 115/75; PULSE 117; TEMP 37.4; O2SAT 97
[2017-10-25] MEDS ORDERED: OSEL75CA23 PO (15:46)
--- NOTE | 2017-10-25 19:09 | EMERGENCY ROOM VISIT NOTE ---
History Report prepared by Deshawn: Rosario Marquez Under the Supervision of: Dr. Artis Bobo M.D. First contact with patient: 12:41 Chief Complaint: CONGESTION Stated Complaint: CONGESTION,CHEST PAIN, PAIN IN BACK History of Present Illness The patient is a 22 year old female who presents to the Emergency Room with complaints of persistent illness starting yesterday morning. The patient felt fatigued yesterday and slept for most of the day. Last night she had vomiting and diarrhea. She has had a large amount of diarrhea. This morning around 1030 she started having mid chest pain and SOB which occurs with coughing. She has been coughing up yellow phlegm. She also has back pain located between her shoulder blades also worse with cough. She reports headaches and body aches. She had a fever this morning of 101. She took Tylenol around 1030. She denies any leg swelling or pain other than diffuse body aches. She has not had a flu shot this season. She notes that she was painting with her brother several days ago and is concerned that the fumes might have affected her lungs. She has not been sexually active since her miscarriage 3 weeks ago. Source of History: patient Onset: yesterday morning Position: other (global) Symptom Intensity: moderate Quality: other (illness) Timing: other (persistent) Associated Symptoms: + fevers, + cough, + chest pain, + SOB, + vomiting, + back pain, + diarrhea Note: Pt reports body aches. Pt denies leg swelling. Review of Systems See HPI for pertinent positives & negatives. A total of 10 systems reviewed and were otherwise negative. Past Medical & Surgical Medical Problems: (1) Heart murmur Surgical Problems: (1) No history of previous surgery Family History Diabetes mellitus FHx: cancer FHx: heart disease Hypertension Social History Smoking Status: Current Every Day Smoker Alcohol Use: occasionally Drug Use: none Marital Status: single, in relationship Housing Status: lives with significant other Occupation Status: unemployed Current/Historical Medications Scheduled Oseltamivir Phosphate (Tamiflu), 1 CAP PO BID Allergies Coded Allergies: Omeprazole (Unverified Allergy, Intermediate, HIVES, ITCH, 10/25/17) Physical Exam Vital Signs Date Time Temp Pulse Resp B/P (MAP) Pulse Ox O2 Delivery O2 Flow Rate FiO2 10/25/17 15:09 37.4 117 18 115/75 97 10/25/17 13:56 38.1 104 18 123/70 99 Room Air 10/25/17 12:43 Room Air 10/25/17 12:33 37.1 115 20 112/75 97 Room Air Physical Exam Constitutional: Vital signs reviewed. Eyes: Pupils are equal round reactive to light. Conjunctiva are noninjected. ENT: Pharynx is clear without erythema or exudate. Mucous membranes are dry. Neck supple without meningeal signs. Respiratory: Clear to auscultation bilaterally. Breath sounds are equal bilaterally. Cardiovascular: Regular rate and rhythm. No rubs or gallops. GI: Soft, nondistended and nontender. Bowel sounds are present. Musculoskeletal: No peripheral edema. No lower extremity tenderness. Reproducible chest wall tenderness. Integumentary: No cyanosis. Neurological: The patient is awake and alert. No focal deficits. Psychiatric: Normal affect. Medical Decision & Procedures ER Provider Diagnostic Interpretation: X-ray results as stated below per interpretation by me and the radiologist: CHEST 2 VIEWS ROUTINE CLINICAL HISTORY: Cough COMPARISON STUDY: 09/08/2013 FINDINGS: The cardiac and mediastinal contours are normal. There is no evidence of focal pulmonary consolidation. There is no evidence of failure. No pleural effusions are visualized.[There is a persistent thoracic scoliosis. Incidental note is made of an azygos fissure. IMPRESSION: No active disease in the chest. Electronically signed by: Brien Jay M.D. 10/25/2017 2:01 PM Dictated Date/Time: 10/25/2017 2:00 PM Laboratory Results 10/25/17 13:00 Red Blood Count 4.82, Mean Corpuscular Volume 92.5, Mean Corpuscular Hemoglobin 31.1, Mean Corpuscular Hemoglobin Concent 33.6, Mean Platelet Volume 10.9, Neutrophils (%) (Auto) 76.8, Lymphocytes (%) (Auto) 11.5, Monocytes (%) (Auto) 11.0, Eosinophils (%) (Auto) 0.0, Basophils (%) (Auto) 0.4, Neutrophils # (Auto ) 5.72, Lymphocytes # (Auto) 0.86, Monocytes # (Auto) 0.82, Eosinophils # (Auto ) 0.00, Basophils # (Auto) 0.03 10/25/17 13:00 Test 10/25/17 13:00 10/25/17 13:02 White Blood Count 7.45 K/uL (4.8-10.8) Red Blood Count 4.82 M/uL (4.2-5.4) Hemoglobin 15.0 g/dL (12.0-16.0) Hematocrit 44.6 % (37-47) Mean Corpuscular Volume 92.5 fL (80-100) Mean Corpuscular Hemoglobin 31.1 pg (25-34) Mean Corpuscular Hemoglobin Concent 33.6 g/dl (32-36) Platelet Count 224 K/uL (130-400) Mean Platelet Volume 10.9 fL (7.4-10.4) Neutrophils (%) (Auto) 76.8 % Lymphocytes (%) (Auto) 11.5 % Monocytes (%) (Auto) 11.0 % Eosinophils (%) (Auto) 0.0 % Basophils (%) (Auto) 0.4 % Neutrophils # (Auto) 5.72 K/uL (1.4-6.5) Lymphocytes # (Auto) 0.86 K/uL (1.2-3.4) Monocytes # (Auto) 0.82 K/uL (0.11-0.59) Eosinophils # (Auto) 0.00 K/uL (0-0.5) Basophils # (Auto) 0.03 K/uL (0-0.2) RDW Standard Deviation 51.4 fL (36.4-46.3) RDW Coefficient of Variation 15.2 % (11.5-14.5) Immature Granulocyte % (Auto) 0.3 % Immature Granulocyte # (Auto) 0.02 K/uL (0.00-0.02) Anion Gap 8.0 mmol/L (3-11) Est Creatinine Clear Calc Drug Dose 111.1 ml/min Estimated GFR () 126.0 Estimated GFR (Non- 108.7 BUN/Creatinine Ratio 11.7 (10-20) Calcium Level 8.9 mg/dl (8.5-10.1) Influenza Type A Antigen POS for Influ A (NEG) Influenza Type B Antigen Neg for Influ B (NEG) Laboratory results as reviewed by me. Medications Administered Medications (Trade) Dose Ordered Sig/Cherise Route Start Time Stop Time Status Last Admin Dose Admin Sodium Chloride 500 ml @ 999 mls/hr Q31M STAT IV 10/25/17 12:50 10/25/17 13:20 DC 10/25/17 13:07 999 MLS/HR Ondansetron HCl (Zofran Inj) 4 mg NOW STAT IV 10/25/17 12:50 10/25/17 12:52 DC 10/25/17 13:07 4 MG Ibuprofen (Motrin Tab) 600 mg NOW STAT PO 10/25/17 13:59 10/25/17 14:00 DC 10/25/17 14:09 600 MG Oseltamivir Phosphate (Tamiflu Cap) 75 mg NOW STAT PO 10/25/17 14:38 10/25/17 14:39 DC 10/25/17 14:58 75 MG ECG Indication: chest pain Rate (beats per minute): 94 Rhythm: normal sinus Findings: no acute ischemic change, no ectopy ED Course 1245: The patient was evaluated in room B3B. A complete history and physical exam was performed. 1250: Zofran Inj 4 mg IV, NSS 500 ml @ 999 mls/hr IV. 1359: Ibuprofen 600 mg PO. 1433: Upon reevaluation, the patient appeared to have improvement of her symptoms. I discussed tonight's findings with her. She would like to be treated with Tamiflu. She verbalized agreement of the treatment plan. She was discharged home. 1438: Tamiflu Cap 75 mg PO. Medical Decision This is a 22-year-old female who presents with flulike illness with chest pain and back pain. Differential diagnosis includes influenza, viral syndrome, bronchitis, pneumonia, pleurisy, pericarditis. I did perform a limited focused review of portions of the patient's old chart on the electronic medical record. The patient was here October 05 for miscarriage. I did evaluate the patient as noted above. The patient is presenting with flulike symptoms. She does have some reproducible chest pain from coughing. IV access was established. I did treat her with normal saline IV. She is also given Zofran IV and ibuprofen. I did order and personally review the patient's 12-lead EKG and chest x-ray as described above. She has no signs of pericarditis on twelve-lead EKG. Her chest x-ray does not show signs of pneumonia. I did order and review the patient's blood work as noted in the electronic medical record. A rapid flu test was obtained and was positive for influenza A. The patient was informed of her test results. She was given Tamiflu here after I discussed the risks and benefits with her. She was discharged with a prescription for Tamiflu. Medication Reconcilliation Current Medication List: was personally reviewed by me Blood Pressure Screening Patient's blood pressure: Normal blood pressure Blood pressure disposition: Did not require urgent referral Impression Primary Impression: Influenza Additional Impressions: Acute chest pain Vomiting and diarrhea Scribe Attestation The scribe's documentation has been prepared under my direct and personally reviewed by me in its entirety. I confirm that the note above accurately reflects all work, treatment, procedures, and medical decision making performed by me. Departure Information Dispostion Home / Self-Care Prescriptions Oseltamivir Phosphate (Tamiflu) 75 Mg Cap 1 CAP PO BID for 5 Days, #9 CAP Prov: Artis Bobo M.D. 10/25/17 Referrals No Doctor, Assigned (PCP) Forms HOME CARE DOCUMENTATION FORM, IMPORTANT VISIT INFORMATION Patient Instructions ED Flu, My [facility] Additional Instructions You have been examined and treated today on an emergency basis only. This is not a substitute for, or an effort to provide, complete comprehensive medical care. It is impossible to recognize and treat all injuries or illnesses in a single emergency department visit. It is therefore important that you follow up closely with your physician. Call as soon as possible for an appointment. Return for worsening symptoms or if you develop any other concerning symptoms. Problem Qualifiers
== END 2017-10-25 15:13 | disposition home or self-care (01) ==
LOC: C.EDB 12:29
DX: J11.1 Influenza due to unidentified influenza virus with other respiratory manifestations (principal); J11.2 Influenza due to unidentified influenza virus with gastrointestinal manifestations; F17.200 Nicotine dependence, unspecified, uncomplicated; Z83.3 Family history of diabetes mellitus; Z80.9 Family history of malignant neoplasm, unspecified; Z82.49 Family history of ischemic heart disease and other diseases of the circulatory system